=== PATIENT | male | born 1955 | race Caucasian/White ===

== ENCOUNTER 2019-07-25 12:43 | Outpatient (CLI) | payer OTHER, SELFPAY ==
--- NOTE | 2019-07-25 12:52 | MR_ITS ---
NOTE: Report was unsigned for reason: Order was edited. Original Signature date and time was: 07/25/19 5791 WS: [id number] MRI OF THE LEFT HIP INDICATION: Left hip pain TECHNIQUE: MRI left hip without gadolinium enhancement. Arthrogram was not performed due to joint effusion and MRI findings. See report below. Axial T1, axial T2, coronal T1, coronal STIR, sagittal T1, and sagittal T2. FINDINGS: Moderate diffuse edema involving the left femoral head and neck extending into the proximal diaphysis. Serpiginous signal abnormality involving the femoral head articular surface consistent with avascular necrosis. Moderate joint space narrowing with a small joint effusion. Small amount of edema in the adjacent acetabulum. Normal inferior and superior pubic rami. Normal pubic symphysis. In addition, soft tissue edema overlying the left greater trochanter consistent with trochanteric bursitis. Mild degenerative arthritis right hip with normal bone marrow signal. Normal bone marrow signal in the sacrum and sacrococcygeal junction. [facility] MR/MR hip LT wo/w con [id number] IMPRESSION: 1. 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 2. Small amount of edema in the adjacent acetabulum with small joint effusion. Moderate joint space narrowing left hip. 3. Edema overlying the left greater trochanter consistent with trochanteric bu rsitis. 4. Mild degenerative narrowing right hip. 5. Normal bone marrow signal in the visualized bony pelvis and sacrum.
== END 2019-07-25 12:44 | disposition home or self-care (01) ==
LOC: RADWPI 12:52
PROVIDERS: Family Provider Family Medicine; PCP Family Medicine; Visit Provider Family Medicine
DX: M25.552 Pain in left hip (principal); R60.9 Edema, unspecified
CPT/HCPCS: 73721; 73723

== ENCOUNTER → 2019-07-28 09:27 | Outpatient (BNVA) | payer OTHER, SELFPAY | PROVIDERS: Family Provider Family Medicine; PCP Family Medicine; Referring Provider Family Medicine; Visit Provider Orthopaedic Surgery | DX: M25.552 Pain in left hip (principal) | CPT/HCPCS: 73502 ==

== ENCOUNTER → 2020-01-29 09:08 | Outpatient (BNVA) | payer MEDICARE, OTHER, SELFPAY | PROVIDERS: Family Provider Family Medicine; PCP Family Medicine; Visit Provider Specialist | DX: M87.052 Idiopathic aseptic necrosis of left femur (principal); M25.552 Pain in left hip | CPT/HCPCS: 73502 ==

== ENCOUNTER → 2021-05-09 08:12 | Outpatient (BNVA) | payer MEDICARE, OTHER, SELFPAY | PROVIDERS: PCP Family Medicine; Visit Provider Nurse Practitioner Family | DX: R33.9 Retention of urine, unspecified (principal); R39.9 Unspecified symptoms and signs involving the genitourinary system | CPT/HCPCS: 81003 ==

== ENCOUNTER 2021-12-07 12:27 | Emergency (ER) | payer MEDICARE, OTHER, SELFPAY ==
[2021-12-07 12:34] VITALS: BP 120/74; PULSE 64; RESP 16; TEMP 36.8; O2SAT 96
--- NOTE | 2021-12-07 12:39 | XRR_ITS ---
PROCEDURE INFORMATION: Exam: XR Chest Exam date and time: 12/07/2021 1:06 PM Age: 66 years old Clinical indication: Other: Fb in RT side of chest; Additional info: Trauma TECHNIQUE: Imaging protocol: Radiologic exam of the chest. Views: 1 view. COMPARISON: CT chest con [id number] 07/15/2016 8:38 AM FINDINGS: Lungs: Unremarkable. No consolidation. Pleural spaces: Unremarkable. No pleural effusion. No pneumothorax. Heart/Mediastinum: Unremarkable. No cardiomegaly. Bones/joints: Unremarkable.. There is a 7 mm metallic density in the projection of the right lower chest it is unclear if this finding is in the chest wall or lung XR/XR chest 1V portable [id number] IMPRESSION: 1. No acute findings. 2. Metallic density is seen in the projection of right lower chest
--- NOTE | 2021-12-07 13:16 | W.ED.SKABFB ---
Documented by User: [email or web address] Smith 12/07/21 17:20 HPI - Skin/Abscess/Foreign Bdy General: Chief complaint: Skin/Abscess/Foreign Body Stated complaint: fb in abd area Time Seen by Provider: 12/07/21 13:04 History of Present Illness: Patient is a 66-year-old male comes to the ED with foreign body and laceration in an skin over chest. Patient states that earlier today he was using a hammer. He hit down on some metal and a little metal piece that however chipped off and shot towards his chest and caused a laceration and went into his skin. Denies any other symptoms. Denies any shortness of breath or chest pain. He has a small superficial laceration to right side of chest. He is not up-to-date on his tetanus. Associated symptoms: Deny chills, fever(s), nausea or vomiting Review of Systems Const: Denies: fever(s), chills or fatigue Eyes: Denies: change in vision or eye discomfort ENMT: Denies: throat pain, odynophagia, nasal discharge or nasal congestion Card: Denies: chest pain, palpitations, edema, swelling of feet/ankles, dyspnea on exertion or orthopnea Resp: Denies: dyspnea, productive cough or non-productive cough GI: Denies: abdominal pain, nausea, vomiting, diarrhea, constipation or hematochezia : Denies: flank pain, difficulty urinating, dysuria or hematuria Musc: Denies: neck pain, back pain or extremity swelling Skin/Breast: Reports: new lesions (Small laceration with small metal foreign body-right chest wall); Denies: rash Neuro: Denies: headache(s), numbness in extremities or weakness in extremities PFSH ED PFSH: Medical History Cardiomyopathy Chronic systolic heart failure Gout Lower urinary tract symptoms Family History Father , UNKNOWN Cancer Mother , UNKNOWN of unknown cause Other CAD (coronary artery disease) Social History Smoking and tobacco status: former smoker Alcohol intake: current Alcohol intake frequency: 3 or more drinks per day Marital status: Current occupational status: employed History of recent travel: No Physical Exam Const: COMMON NORMALS: no acute distress and patient oriented x3 GENERAL APPEARANCE: cooperative and comfortable HENMT: COMMON NORMALS: normocephalic HEAD & SCALP: normocephalic MOUTH: Normal oral and palatal mucosa present THROAT: posterior oropharynx normal and uvula midline Neck/C-Spine: COMMON NORMALS: supple GENERAL: Yes normal visual inspection Chest: OTHER: Small linear 0.5 cm laceration to right chest wall. No foreign body or any palpable foreign body present. No active bleeding noted. Resp: COMMON NORMALS: normal respiratory effort, No retractions, No use of accessory muscles and clear to auscultation bilaterally AUSCULTATION: clear to auscultation bilaterally Cardio: COMMON NORMALS: regular rate, regular rhythm, S1 normal heart sound present, S2 normal heart sound present, No gallops present (Cardio), No clicks present (Cardio), No murmurs present (Cardio) and Peripheral pulses 2+ throughout RATE: regular rate RHYTHM: regular rhythm HEART SOUNDS: S1 normal heart sound present and S2 normal heart sound present PERIPHERAL PULSES: Peripheral pulses 2+ throughout GI: COMMON NORMALS: Normal to inspection, nondistended, normoactive bowel sounds present, Soft to palpation, non-tender and no masses PALPATION: Yes Soft to palpation : COMMON NORMALS: Yes no CVA tenderness BLADDER/KIDNEY EXAM: Yes no CVA tenderness Back/Pelvis: COMMON NORMALS: no CVA tenderness Neuro: COMMON NORMALS: patient oriented x3 GAIT: Yes Normal gait present Skin: GENERAL SKIN EXAM: dry skin Course Vital Signs: Vital signs: Vital Signs Temperature 98.2 F 12/07/21 12:34 Pulse Rate 64 12/07/21 12:34 Respiratory Rate 16 12/07/21 12:34 Blood Pressure 120/74 12/07/21 12:34 Pulse Oximetry 96 12/07/21 12:34 Oxygen Delivery Me thod 12/07/21 12:34 MDM - Skin/Abscess/Foreign Bdy Medicial Decision Making Patient is a 66-year-old male comes to the ED with foreign body and laceration in an skin over chest. Patient states that earlier today he was using a hammer. He hit down on some metal and a little metal piece that however chipped off and shot towards his chest and caused a laceration and went into his skin. Denies any other symptoms. Denies any shortness of breath or chest pain. Vitals are stable. Patient appears nontoxic in no acute distress or pain. His lungs are clear to auscultation bilaterally. He does have a small linear laceration on right chest wall with no active bleeding. No foreign body seen or palpable mass under skin. Chest x-ray shows a metallic dense foreign body deep into the anterior chest wall but does not extend into the lung. Talked with Dr. Mccabe about this patient case and he recommended putting patient on antibiotic and not to perform any procedure to remove foreign body. Patient was given updated tetanus and put on prescription of Augmentin. He is told to follow-up with PCP in the next week for reevaluation. Return ED precautions given. Patient understood agree with plan. Lab Data Radiology Impressions Chest X-Ray 12/07/21 13:53 IMPRESSION: Metallic density is seen in the deep anterior chest wall and does not extend into the lung Discharge Plan Discharge Patient Disposition: Home Clinical Impression: Foreign body of chest wall Qualifiers: Encounter type: initial encounter Laterality: right Qualified Code(s): S20.351A - Superficial foreign body of right front wall of thorax, initial encounter Condition: Stable Prescriptions: New Augmentin 500-125 mg tablet 1 tab PO BID 5 Days Qty: 10 0RF No Action fluticasone propionate [Flonase Allergy Relief] 50 mcg/actuation spray,suspension 1 spray INTRANASAL DIRECTED aspirin [Adult Low Dose Aspirin] 81 mg tablet,delayed release (DR/EC) 81 mg PO DAILY atorvastatin 40 mg tablet 40 mg PO DAILY montelukast [Singulair] 10 mg tablet 10 mg PO DAILY albuterol sulfate [Ventolin HFA] 90 mcg/actuation HFA aerosol inhaler 1 inh INHALATION DAILY furosemide [Lasix] 20 mg tablet 20 mg PO DAILY PRN tramadol 50 mg tablet 50 mg PO Q6H PRN isosorbide mononitrate 20 mg tablet 20 mg PO DAILY Qty: 90 3RF metoprolol succinate [Toprol XL] 25 mg tablet extended release 24 hr 12.5 mg PO .HS Qty: 45 0RF losartan 25 mg tablet 12.5 mg PO DAILY Qty: 45 3RF Discharge Orders: Discharge ED (Routine); Ordered 12/07/21 Ordered By: Wilfrido Dhaliwal Referrals: Edwar Landers MD [Primary Care Provider] - Discharge Diet: Regular Discharge Activity: Resume usual activity Patient Instructions: Soft Tissue Foreign Body (ED) Activity Restrictions/Additional Instructions: Follow-up with medical provider as directed in the next 5 to 7 days reevaluation. Take medications as prescribed. Return to the ER or your medical provider if condition worsens. Please read and understand discharge instructions. Thank you for choosing [facility] for your healthcare needs today. Please realize this is an emergency room and that we are providing you with a medical screening exam and this may not be complete and all inclusive of all the testing and or work up that you may need to determine your ailment or severity of your illness. It is very important that you follow up as instructed or that you return to the Emergency Department should you have concerns or if your condition changes or worsens in any way. Coding Level of Care Code ED Diesel Power Mechanic for Chg Fwd Exam Comprehensive Documented by User: Riccardo Mccabe DO 12/08/21 08:17 HPI - Skin/Abscess/Foreign Bdy General: Chief complaint: Skin/Abscess/Foreign Body Stated complaint: fb in abd area Time Seen by Provider: 12/07/21 13:04 [facility] PFSH: Medical History Cardiomyopathy Chronic systolic heart failure Gout Lower urinary tract symptoms Family History Father , UNKNOWN Cancer Mother , UNKNOWN of unknown cause Other CAD (coronary artery disease) Social History Smoking and tobacco status: former smoker Alcohol intake: current Alcohol intake frequency: 3 or more drinks per day Marital status: Current occupational status: employed History of recent travel: No Course Vital Signs: Vital signs: Vital Signs Temperature 98.2 F 12/07/21 12:34 Pulse Rate 64 12/07/21 12:34 Respiratory Rate 16 12/07/21 12:34 Blood Pressure 120/74 12/07/21 12:34 Pulse Oximetry 96 12/07/21 12:34 Oxygen Delivery Me thod 12/07/21 12:34 MDM - Skin/Abscess/Foreign Bdy Medicial Decision Making Patient is a 66-year-old male comes to the ED with foreign body and laceration in an skin over chest. Patient states that earlier today he was using a hammer. He hit down on some metal and a little metal piece that however chipped off and shot towards his chest and caused a laceration and went into his skin. Denies any other symptoms. Denies any shortness of breath or chest pain. Vitals are stable. Patient appears nontoxic in no acute distress or pain. His lungs are clear to auscultation bilaterally. He does have a small linear laceration on right chest wall with no active bleeding. No foreign body seen or palpable mass under skin. Chest x-ray shows a metallic dense foreign body deep into the anterior chest wall but does not extend into the lung. Talked with Dr. Mccabe about this patient case and he recommended putting patient on antibiotic and not to perform any procedure to remove foreign body. Patient was given updated tetanus and put on prescription of Augmentin. He is told to follow-up with PCP in the next week for reevaluation. Return ED precautions given. Patient understood agree with plan. Chart reviewed and patient discussed with midlevel. Agree with assessment and plan. Lab Data Radiology Impressions Chest X-Ray 12/07/21 13:53 IMPRESSION: Metallic density is seen in the deep anterior chest wall and does not extend into the lung Discharge Plan Discharge Patient Disposition: Home Clinical Impression: Foreign body of chest wall Qualifiers: Encounter type: initial encounter Laterality: right Qualified Code(s): S20.351A - Superficial foreign body of right front wall of thorax, initial encounter Condition: Stable Prescriptions: New Augmentin 500-125 mg tablet 1 tab PO BID 5 Days Qty: 10 0RF No Action fluticasone propionate [Flonase Allergy Relief] 50 mcg/actuation spray,suspension 1 spray INTRANASAL DIRECTED aspirin [Adult Low Dose Aspirin] 81 mg tablet,delayed release (DR/EC) 81 mg PO DAILY atorvastatin 40 mg tablet 40 mg PO DAILY montelukast [Singulair] 10 mg tablet 10 mg PO DAILY albuterol sulfate [Ventolin HFA] 90 mcg/actuation HFA aerosol inhaler 1 inh INHALATION DAILY furosemide [Lasix] 20 mg tablet 20 mg PO DAILY PRN tramadol 50 mg tablet 50 mg PO Q6H PRN isosorbide mononitrate 20 mg tablet 20 mg PO DAILY Qty: 90 3RF metoprolol succinate [Toprol XL] 25 mg tablet extended release 24 hr 12.5 mg PO .HS Qty: 45 0RF losartan 25 mg tablet 12.5 mg PO DAILY Qty: 45 3RF Discharge Orders: Discharge ED (Routine); Ordered 12/07/21 Ordered By: Wilfrido Dhaliwal Referrals: Edwar Landers MD [Primary Care Provider] - Discharge Diet: Regular Discharge Activity: Resume usual activity Patient Instructions: Soft Tissue Foreign Body (ED) Activity Restrictions/Additional Instructions: Follow-up with medical provider as directed in the next 5 to 7 days reevaluation. Take medications as prescribed. Return to the ER or your medical provider if condition worsens. Please read and understand discharge instructions. Thank you for choosing [facility] for your healthcare needs today. Please realize this is an emergency room and that we are providing you with a medical screening exam and this may not be complete and all inclusive of all the testing and or work up that you may need to determine your ailment or severity of your illness. It is very important that you follow up as instructed or that you return to the Emergency Department should you have concerns or if your condition changes or worsens in any way. Coding Level of Care Code ED Diesel Power Mechanic for Mickey Vasquez Exam Comprehensive
--- NOTE | 2021-12-07 13:53 | XRR_ITS ---
PROCEDURE INFORMATION: Exam: XR Chest Exam date and time: 12/07/2021 1:59 PM Age: 66 years old Clinical indication: Abnormal findings; Other: Foreign body in chest wall; Additional info: Fb in chest wall, lateral view needed TECHNIQUE: Imaging protocol: Radiologic exam of the chest. Views: 2 views. COMPARISON: CR (CHEST, ) 12/07/2021 1:06 PM FINDINGS: Lungs: Unremarkable. No consolidation. Pleural spaces: Unremarkable. No pleural effusion. No pneumothorax. Heart/Mediastinum: Unremarkable. No cardiomegaly. Bones/joints: Unremarkable. Metallic density is seen in the anterior chest wall. This finding does not extend into the lung but appears to be in the posterior chest wall adjacent to the level of the xiphoid. XR/XR chest 2V* [id number] IMPRESSION: Metallic density is seen in the deep anterior chest wall and does not extend into the lung
[2021-12-07] MEDS: amoxicillin-clav 500-125 mg Tablet 1 TAB PO (14:57)
[2021-12-07] MEDS: tetanus-dipt-pertussis 0.5 mL SDV IM (14:57)
== END 2021-12-07 14:59 | disposition home or self-care (01) ==
PROVIDERS: Emergency Provider Physician Assistant; PCP Family Medicine
DX: S20.351A Superficial foreign body of right front wall of thorax, initial encounter (principal); Z79.82 Long term (current) use of aspirin; I50.22 Chronic systolic (congestive) heart failure; Z87.891 Personal history of nicotine dependence; Z23 Encounter for immunization; W20.8XXA Other cause of strike by thrown, projected or falling object, initial encounter
CPT/HCPCS: 71045; 71046; 90471; 90715; 99283

== ENCOUNTER → 2022-04-07 10:34 | Outpatient (BNVA) | payer MEDICARE, OTHER, SELFPAY | PROVIDERS: PCP Family Medicine; Visit Provider Internal Medicine Cardiovascular Disease | DX: I42.9 Cardiomyopathy, unspecified (principal) | CPT/HCPCS: 99213 ==

== ENCOUNTER → 2023-03-30 11:02 | Outpatient (BNVA) | payer MEDICARE, OTHER, SELFPAY | PROVIDERS: PCP Family Medicine; Visit Provider Internal Medicine Cardiovascular Disease | DX: I42.9 Cardiomyopathy, unspecified (principal); E78.5 Hyperlipidemia, unspecified; M10.9 Gout, unspecified | CPT/HCPCS: 99214 ==

== ENCOUNTER → 2024-04-04 15:08 | Outpatient (BNVA) | payer MEDICARE, OTHER, SELFPAY | PROVIDERS: PCP Family Medicine; Visit Provider Internal Medicine Cardiovascular Disease | DX: R07.9 Chest pain, unspecified (principal); I42.9 Cardiomyopathy, unspecified; E78.2 Mixed hyperlipidemia; I50.22 Chronic systolic (congestive) heart failure; Z87.891 Personal history of nicotine dependence; R00.1 Bradycardia, unspecified; I44.7 Left bundle-branch block, unspecified | CPT/HCPCS: 93005; 99214 ==

== ENCOUNTER → 2024-06-29 08:58 | Outpatient (BNVA) | payer MEDICARE, OTHER, SELFPAY | PROVIDERS: PCP Family Medicine; Visit Provider Nurse Practitioner Family | DX: I42.9 Cardiomyopathy, unspecified (principal); E78.2 Mixed hyperlipidemia; I11.0 Hypertensive heart disease with heart failure; I50.22 Chronic systolic (congestive) heart failure; Z87.891 Personal history of nicotine dependence | CPT/HCPCS: 99213 ==

== ENCOUNTER → 2024-10-24 14:49 | Outpatient (BNVA) | payer MEDICARE, OTHER, SELFPAY | PROVIDERS: PCP Family Medicine; Visit Provider Internal Medicine Cardiovascular Disease | DX: I42.6 Alcoholic cardiomyopathy (principal); I50.22 Chronic systolic (congestive) heart failure; Z87.891 Personal history of nicotine dependence; M10.9 Gout, unspecified | CPT/HCPCS: 99214 ==

== ENCOUNTER 2024-11-23 06:20 | Outpatient (CLI) | payer MEDICARE, OTHER, SELFPAY ==
--- NOTE | 2024-11-23 06:30 | USCV_ITS ---
Wlid Correa Age: 69 Gender: M : 1955 Exam Date: 11/23/2024 06:44 Ordering Phys: Kaia Bright MD ([email or web address]) Technologist: Exam Location: [facility] [place] Indication: sob cp BP: 130 / 70 HR: 70 Rhythm: Sinus Technical Quality: Adequate MEASUREMENTS (Male / Female) Normal Values 2D ECHO LV Diastolic Diameter PLAX 5.1 cm 4.2 - 5.9 / 3.9 - 5.3 cm IVS Diastolic Thickness 1.2 cm 0.6 - 1.0 / 0.6 - 0.9 cm IVS Systolic Thickness 1.6 cm LVPW Diastolic Thickness 1.5 cm 0.6 - 1.0 / 0.6 - 0.9 cm LVPW Systolic Thickness 1.6 cm LVOT Diameter 2.1 cm LV Ejection Fraction 2D Teich 61.6 % LV Ejection Fraction MOD 4C 47.8 % LV Ejection Fraction MOD 2C 47.4 % LV Ejection Fraction 2C AL 48.4 % LA Diameter 4.5 cm RA Systolic Volume 4C AL 68.0 ml RA Systolic Volume 4C MOD 68.3 ml Aorta at Sinotubular Diameter 3.3 cm IVC Diameter 1.8 cm M-MODE LA Ao Ratio MM 1.1 AV Cusp Separation MM 2.2 cm DOPPLER AV Peak Velocity 143.0 cm/s LVOT Peak Velocity 81.0 cm/s AV Area Cont Eq vti 2.2 cm squared AV Area Cont Eq pk 2.0 cm squared MV Peak Velocity 114.0 cm/s MV Area PHT 3.4 cm squared Mitral E to A Ratio 1.5 TV Peak Velocity 213.5 cm/s TR Peak Velocity 247.0 cm/s TR Peak Gradient 24.4 mmHg TV Peak E Velocity 108.0 cm/s PV Peak Velocity 107.0 cm/s FINDINGS Left Ventricle Moderately increased left ventricular cavity size. Moderately decreased left ventricular systolic function. Left ventricular ejection fraction is estimated at 45 %. Global left ventricular hypokinesis. Grade II/IV diastolic dysfunction, moderately elevated filling pressures. Right Ventricle The right ventricle is normal in size and function. Right Atrium Moderately increased right atrial size. Left Atrium Moderately increased left atrial size. Mitral Valve Mildly thickened mitral valve. No mitral valve stenosis. Moderate mitral valve regurgitation. Aortic Valve Structurally normal aortic valve without significant sclerosis or stenosis. There is no aortic regurgitation. Tricuspid Valve Structurally normal tricuspid valve without significant stenosis or regurgitation. Pulmonary artery systolic pressure is normal. Pulmonic Valve Mild pulmonary valve regurgitation. Pericardium Normal pericardium without effusion. Aorta Normal ascending aorta dimension. IVC The inferior vena cava appears normal. CONCLUSIONS Moderately increased left ventricular cavity size. Moderately decreased left ventricular systolic function. Left ventricular ejection fraction is estimated at 45 %. Global left ventricular hypokinesis. Grade II/IV diastolic dysfunction, moderately elevated filling pressures. Moderately increased left atrial size. Moderately increased right atrial size. Mildly thickened mitral valve. No mitral valve stenosis. Moderate mitral valve regurgitation. Structurally normal aortic valve without significant sclerosis or stenosis. There is no aortic regurgitation. Mild pulmonary valve regurgitation. There is no pericardial effusion. Right atrial pressure is around 5 mm of mercury. Kaia Bright MD (Electronically Signed) Final Date: 23 November 2024 22:14 S
== END 2024-11-23 06:21 | disposition home or self-care (01) ==
LOC: RAD 06:21
PROVIDERS: PCP Family Medicine; Visit Provider Internal Medicine Cardiovascular Disease
DX: I42.9 Cardiomyopathy, unspecified (principal); I42.0 Dilated cardiomyopathy; I50.23 Acute on chronic systolic (congestive) heart failure; I34.0 Nonrheumatic mitral (valve) insufficiency; I37.1 Nonrheumatic pulmonary valve insufficiency; I51.89 Other ill-defined heart diseases
CPT/HCPCS: 93306